=== PATIENT | female | born 1955 | race Caucasian/White ===

== ENCOUNTER 2017-08-15 14:47 | Emergency (ER) | payer OTHER ==
[~2017-08-15] VITALS: Ht 165.1 cm; Wt 75.8 kg
[2017-08-15] MEDS ORDERED: PROZAC 20 MG20 MG PO (14:56)
[2017-08-15] MEDS ORDERED: FISH OIL 1,001000 M2 PO (14:56)
[2017-08-15] MEDS ORDERED: CALCIUM 600 +1 EAC1 PO (14:56)
[2017-08-15] MEDS ORDERED: HYDROCHLOROTH12.5 M1 PO (14:57)
[2017-08-15] MEDS ORDERED: KLOR-CON 1010 MEQ PO (14:57)
[2017-08-15] MEDS ORDERED: ALTACE10 MG PO (14:57)
[2017-08-15] MEDS ORDERED: ONDANSETRON HCL4 M2 PO (14:57)
[2017-08-15] MEDS ORDERED: UNICOMPLEX M TA1 TA1 PO (14:57)
[2017-08-15] MEDS ORDERED: RED YEAST RICE600 M1 PO (14:58)
[2017-08-15 15:06] LABS: HEMATOCRIT 32.9 % (37.0-47.0); MCH 27.7 pg (26.0-34.0); MCHC 33.5 g/dL (28.0-37.0); MCV 82.8 fL (80.0-100.0); NUCLEATED RBCS 0 /100WBC; PLATELET COUNT* 574 thou/uL (150-400); RBC 3.98 mil/uL (4.20-5.00); RDW-CV 13.5 % (10.5-14.5); WBC 14.5 thou/uL (4.0-11.0)
[2017-08-15 15:13] LABS: ANION GAP 10 mmol/L (7-16); BUN 9 mg/dL (7-18); CALCIUM 9.6 mg/dL (8.5-10.1); CHLORIDE 96 mmol/L (98-107); CO2 28 mmol/L (21-32); CREATININE 0.8 mg/dL (0.6-1.3); GLUCOSE 127 mg/dL (70-99); SODIUM 134 mmol/L (136-145)
[2017-08-15 15:20] LABS: ALBUMIN 2.7 g/dL (3.4-5.0); ALKALINE PHOSPHATASE 97 U/L (46-116); LIPASE 105 U/L (73-393); SGOT 15 U/L (15-37); SGPT 23 U/L (30-65); TOTAL BILIRUBIN 0.4 mg/dL (<0.1-1.0); TOTAL PROTEIN 7.8 g/dL (6.4-8.2); TROPONIN-I LEVEL <0.06 ng/mL (<0.06)
[2017-08-15 15:51] LABS: ABSOLUTE BASOPHILS 0.1 thou/uL (0.0-0.2); ABSOLUTE LYMPHOCYTES 2.3 thou/uL (0.8-5.3); ABSOLUTE MONOCYTES 0.6 thou/uL (0.0-1.2); ABSOLUTE NEUTROPHILS 11.5 thou/uL (1.6-8.1)
[2017-08-15 15:53] LABS: PLATELET ESTIMATE INCREASED
[2017-08-15 15:54] LABS: TOXIC GRANULATION Occasional
[2017-08-15 17:23] LABS: URINE BILIRUBIN NEGATIVE (Negative); URINE BLOOD TRACE (Negative); URINE CLARITY CLEAR; URINE COLOR YELLOW; URINE GLUCOSE-RANDOM NEGATIVE (Negative); URINE KETONES 1+ (Negative); URINE LEUKOCYTES-REFLEX NEGATIVE (Negative); URINE NITRITE-REFLEX NEGATIVE (Negative); URINE PROTEIN 1+ (Negative); URINE SPECIFIC GRAVITY <= 1.005 (1.005-1.030); URINE UROBILINOGEN 0.2 E.U./dl (0.2-1.0)
[2017-08-15] MEDS ORDERED: FLAGYL500 MG PO (19:25)
[2017-08-15 20:10] VITALS: BP 121/75
--- NOTE | 2017-08-16 14:30 | EKG ---
[place] [address] ELECTROCARDIOGRAM REPORT Name: TOBIAS COBB Room: 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 M : 1955 Requested By: Venecia Billings Order Number: [id number] MD: Rafi Salcedo Measurements Intervals [place] Rate: 91 P: 60 [place]: 126 QRS: -17 QRSD: 95 T: 61 QT: 370 QTc: 456 Interpretive Statements Sinus rhythm Borderline left axis deviation Low voltage, extremity leads Minimal ST depression, anterolateral leads Baseline wander in lead(s) V2 No previous ECG available for comparison Electronically Signed On 08-16-2017 14:30:12 CDT by Rafi Salcedo [email or web address] <ELECTRONICALLY SIGNED> By: Rafi Salcedo MD, [facility] 08/16/17 1430 1504 1504 Rafi Salcedo MD, [facility] /EPI
== END 2017-08-15 20:16 | disposition home or self-care (01) ==
LOC: M.ERS 14:47
PROVIDERS: Nurse Practitioner Family
DX: R19.7 Diarrhea, unspecified (principal); I10 Essential (primary) hypertension; Z88.8 Allergy status to other drugs, medicaments and biological substances

== ENCOUNTER 2017-09-07 09:15 | Emergency (ER) | payer OTHER ==
[~2017-09-07] VITALS: Ht 165.1 cm; Wt 72.6 kg
[~2017-09-07 09:15] MED LIST: ALTACE10 MG PO; CALCIUM 600 +1 EAC1 PO; FISH OIL 1,001000 M2 PO; FLAGYL500 MG PO; HYDROCHLOROTH12.5 M1 PO; KLOR-CON 1010 MEQ PO; ONDANSETRON HCL4 M2 PO; PROZAC 20 MG20 MG PO; RED YEAST RICE600 M1 PO; UNICOMPLEX M TA1 TA1 PO
[2017-09-07 09:44] LABS: ABSOLUTE EOSINOPHILS 0.1 thou/uL (0.0-0.7); ABSOLUTE LYMPHOCYTES 1.2 thou/uL (0.8-5.3); ABSOLUTE MONOCYTES 0.7 thou/uL (0.0-1.2); ABSOLUTE NEUTROPHILS 5.5 thou/uL (1.6-8.1); BASOPHILS 0.4 %; EOSINOPHILS 1.4 %; HEMATOCRIT 27.3 % (37.0-47.0); HEMOGLOBIN 9.1 gm/dL (12.0-15.0); LYMPHOCYTES 16.1 %; MCH 27.2 pg (26.0-34.0); MCHC 33.1 g/dL (28.0-37.0); MONOCYTES 9.3 %; MPV 5.7 fl. (7.2-11.1); NUCLEATED RBCS 0 /100WBC; PLATELET COUNT* 573 thou/uL (150-400); POLYS 72.8 %; RBC 3.33 mil/uL (4.20-5.00); RDW-CV 14.5 % (10.5-14.5); WBC 7.6 thou/uL (4.0-11.0)
[2017-09-07 09:48] LABS: ANION GAP 8 mmol/L (7-16); BUN 7 mg/dL (7-18); CALCIUM 9.1 mg/dL (8.5-10.1); CHLORIDE 100 mmol/L (98-107); CO2 28 mmol/L (21-32); CREATININE 0.6 mg/dL (0.6-1.3); GLUCOSE 120 mg/dL (70-99); SODIUM 136 mmol/L (136-145)
[2017-09-07 09:54] LABS: ALBUMIN 2.3 g/dL (3.4-5.0); ALKALINE PHOSPHATASE 82 U/L (46-116); LIPASE 173 U/L (73-393); SGOT 16 U/L (15-37); SGPT 21 U/L (30-65); TOTAL BILIRUBIN 0.3 mg/dL (<0.1-1.0); TOTAL PROTEIN 7.3 g/dL (6.4-8.2); TROPONIN-I LEVEL <0.06 ng/mL (<0.06)
[2017-09-07 10:01] LABS: SALICYLATE < 2.8 mg/dL (2.8-20.0)
[2017-09-07 10:02] LABS: ACETAMINOPHEN < 2 ug/mL (10-30); ALCOHOL < 10 mg/dL (<10)
[2017-09-07 10:12] LABS: URINE BILIRUBIN NEGATIVE (Negative); URINE BLOOD NEGATIVE (Negative); URINE CLARITY CLEAR; URINE COLOR YELLOW; URINE GLUCOSE-RANDOM NEGATIVE (Negative); URINE KETONES TRACE (Negative); URINE LEUKOCYTES-REFLEX NEGATIVE (Negative); URINE NITRITE-REFLEX NEGATIVE (Negative); URINE PROTEIN TRACE (Negative); URINE SPECIFIC GRAVITY 1.015 (1.005-1.030); URINE UROBILINOGEN 0.2 E.U./dl (0.2-1.0)
[2017-09-07 10:20] LABS: AMP/METHAMP Negative (Negative); BARBITURATES Negative (Negative); BENZODIAZEPINES Negative (Negative); COCAINE Negative (Negative); METHADONE Negative (Negative); OPIATES Negative (Negative); PCP Negative (Negative); THC Negative (Negative)
[2017-09-07] MEDS ORDERED: PROZAC40 MG PO (10:40)
[2017-09-07 11:53] VITALS: BP 145/83
--- NOTE | 2017-09-07 16:11 | EKG ---
[place] [address] ELECTROCARDIOGRAM REPORT Name: TOBIAS COBB Room: [facility]#: [id number] Admission: 09/07/17 Attend Phys: Discharge: 09/07/17 Date of : 53 Report #: [id number] THIS REPORT FOR: //name// [facility] ED Test Date: 2017-09-07 Test Time: 09:41:37 Pat Name: TOBIAS COBB Department: Room: Gender: F Community Health Planning Director: Shanel MENCHACA : 1955 Requested By: Jay Jay Reed Order Number: [id number] MD: Shane Tripathi Measurements Intervals [place] Rate: 100 P: 62 [place]: 112 QRS: 51 QRSD: 85 T: 75 QT: 332 QTc: 429 Interpretive Statements Sinus tachycardia nonspecific st changes Probable left atrial enlargement Low voltage, extremity leads Compared to ECG 08/15/2017 15:04:09 Sinus rhythm no longer present Electronically Signed On 09-07-2017 16:10:52 CDT by Shane Tripathi [email or web address] <ELECTRONICALLY SIGNED> By: Shane Tripathi MD, [facility] 09/07/17 3100 0941 0941 Shane Tripathi MD, [facility] /EPI
== END 2017-09-07 11:53 | disposition home or self-care (01) ==
LOC: M.ERS 09:15
PROVIDERS: Emergency Medicine Emergency Medical Services
DX: F32.9 Major depressive disorder, single episode, unspecified (principal); R19.7 Diarrhea, unspecified; I10 Essential (primary) hypertension; Z90.89 Acquired absence of other organs; Z88.1 Allergy status to other antibiotic agents; Z88.8 Allergy status to other drugs, medicaments and biological substances

== ENCOUNTER 2017-09-10 09:04 | Inpatient (IN) | payer OTHER ==
[~2017-09-10] VITALS: Ht 165.1 cm; Wt 68.9 kg
--- NOTE | ~2017-09-10 | PROC ---
[address] [address] PROCEDURE REPORT Name: TOBIAS COBB Room: [address] IN M.R.#: [id number] Admission: 09/10/17 Attend Phys: Fermín Andrews MD Discharge: 09/14/17 Date of : 53 Report #: [id number] THIS REPORT FOR: //name// For GI report, Please see the Provation report in Perceptive 7 content. By: 0857Medical Records Staff RYANNE /COLTON
[~2017-09-10 09:04] MED LIST changes: +PROZAC40 MG PO
[2017-09-10 09:12] VITALS: BP 134/76
[2017-09-10] MEDS ORDERED: IRON325 PO (09:15)
[2017-09-10 09:55] LABS: MPV 5.9 fl. (7.2-11.1); PLATELET COUNT* 660 thou/uL (150-400)
[2017-09-10 09:58] LABS: ABSOLUTE LYMPHOCYTES 1.2 thou/uL (0.8-5.3); ABSOLUTE MONOCYTES 0.6 thou/uL (0.0-1.2); ABSOLUTE NEUTROPHILS 5.5 thou/uL (1.6-8.1); BASOPHILS 0.5 %; EOSINOPHILS 0.6 %; HEMATOCRIT 28.8 % (37.0-47.0); HEMOGLOBIN 9.3 gm/dL (12.0-15.0); LYMPHOCYTES 15.9 %; MCH 26.8 pg (26.0-34.0); MCHC 32.5 g/dL (28.0-37.0); MCV 82.6 fL (80.0-100.0); MONOCYTES 7.6 %; NUCLEATED RBCS 0 /100WBC; POLYS 75.4 %; RBC 3.48 mil/uL (4.20-5.00); RDW-CV 14.6 % (10.5-14.5); WBC 7.3 thou/uL (4.0-11.0)
[2017-09-10 10:07] LABS: ANION GAP 7 mmol/L (7-16); BUN 8 mg/dL (7-18); CALCIUM 9.3 mg/dL (8.5-10.1); CHLORIDE 99 mmol/L (98-107); CO2 30 mmol/L (21-32); CREATININE 0.7 mg/dL (0.6-1.3); GLUCOSE 112 mg/dL (70-99); POTASSIUM 3.8 mmol/L (3.5-5.1); SODIUM 136 mmol/L (136-145)
[2017-09-10 10:11] LABS: ALBUMIN 2.4 g/dL (3.4-5.0); ALKALINE PHOSPHATASE 87 U/L (46-116); LIPASE 148 U/L (73-393); SGOT 12 U/L (15-37); SGPT 15 U/L (30-65); TOTAL BILIRUBIN 0.4 mg/dL (<0.1-1.0); TOTAL PROTEIN 7.5 g/dL (6.4-8.2); TROPONIN-I LEVEL <0.06 ng/mL (<0.06)
[2017-09-10 11:27] LABS: URINE BILIRUBIN NEGATIVE (Negative); URINE BLOOD NEGATIVE (Negative); URINE CLARITY CLEAR; URINE COLOR YELLOW; URINE GLUCOSE-RANDOM NEGATIVE (Negative); URINE KETONES 1+ (Negative); URINE LEUKOCYTES-REFLEX NEGATIVE (Negative); URINE NITRITE-REFLEX NEGATIVE (Negative); URINE PROTEIN TRACE (Negative); URINE UROBILINOGEN 0.2 E.U./dl (0.2-1.0)
--- NOTE | 2017-09-10 13:18 | NUR ---
REPORT GIVEN TO ELEAZAR. PT STABLE VSS AT THIS TIME. DR SERRANO IN ROOM, GAVE VERBAL ORDERS TO HOLD IV ABX AND PAIN MEDICATIONS. DR SERRANO OK WITH ORAL VANCOMYCIN, NOT AVAILABLE IN ED. PT IV NS STARTED WO AT THIS TIME. DR SERRANO ALSO ORDERED CDIFF PRECAUTIONS AT THIS TIME. WILL NOTIFY FLOOR RN.
[2017-09-10 13:41] VITALS: BP 127/75
[2017-09-10 13:50] VITALS: BP 137/87
--- NOTE | 2017-09-10 15:14 | EKG ---
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 <ELECTRONICALLY SIGNED> By: Jordan Koo MD, [facility] 09/10/17 1514 6 6 Jordan Koo MD, [facility] /EPI
[2017-09-10 21:15] VITALS: BP 143/79
[2017-09-11 03:55] LABS: ABSOLUTE EOSINOPHILS 0.1 thou/uL (0.0-0.7); ABSOLUTE LYMPHOCYTES 1.3 thou/uL (0.8-5.3); ABSOLUTE MONOCYTES 0.7 thou/uL (0.0-1.2); ABSOLUTE NEUTROPHILS 3.6 thou/uL (1.6-8.1); BASOPHILS 0.7 %; EOSINOPHILS 2.1 %; HEMATOCRIT 24.9 % (37.0-47.0); HEMOGLOBIN 8.2 gm/dL (12.0-15.0); LYMPHOCYTES 22.7 %; MCH 27.1 pg (26.0-34.0); MCHC 32.7 g/dL (28.0-37.0); MCV 82.6 fL (80.0-100.0); MONOCYTES 12.3 %; MPV 5.8 fl. (7.2-11.1); NUCLEATED RBCS 0 /100WBC; POLYS 62.2 %; RBC 3.01 mil/uL (4.20-5.00); RDW-CV 14.8 % (10.5-14.5); WBC 5.8 thou/uL (4.0-11.0)
[2017-09-11 04:08] LABS: PLATELET COUNT* 531 thou/uL (150-400)
[2017-09-11 04:10] LABS: CALCIUM 8.7 mg/dL (8.5-10.1); CREATININE 0.7 mg/dL (0.6-1.3); POTASSIUM 3.6 mmol/L (3.5-5.1); TOTAL BILIRUBIN 0.2 mg/dL (<0.1-1.0); TOTAL PROTEIN 6.2 g/dL (6.4-8.2)
--- NOTE | 2017-09-11 05:28 | NUR ---
PATIENT SLEPT MOST OF THE NIGHT. IV FLUIIDS CONTINUE TO INFUSE AT 100 ML/HR. PATIENT WAS GIVEN TYLENOL TWICE ONCE FOR SLEEP AND ONCE FOR PAIN. ZOFRAN WAS GIVEN TWICE FOR NAUSEA. WILL CONTINUE TO MONITOR.
[2017-09-11 08:45] VITALS: BP 146/82
--- NOTE | 2017-09-11 11:02 | NUR ---
SW met with pt to complete initial assessment, introduce self, and SW role. Pt alert, oriented, pleasant. Pt visiting pt. Pt lives at home with who is supportive and able to assist if needed. Pt has a bed and everything pt would need to live on one level. Pt independent with ADLs and mobility prior to admit. Pt does not anticipate any needs at [place]. Pt does not have any DME or history of services.
[2017-09-11 12:53] LABS: % SATURATION 15 % (20-39); IRON 21 ug/dL (50-175)
--- NOTE | 2017-09-11 13:26 | CON ---
[address] [address] CONSULTATION Name: TOBIAS COBB Room: [address] IN .R.#: [id number] Admission: 09/10/17 Attend Phys: Fermín Andrews MD Discharge: Date of : 53 Report #: [id number] THIS REPORT FOR: //name// CC: Fermín Sparrow DO DICTATED BY: Keri Engel [facility] DATE OF SERVICE: 09/10/2017 Please note at the time of this dictation, the patient was seen and physically examined by myself. REASON FOR CONSULTATION: Diarrhea and abnormal CT. HISTORY OF PRESENT ILLNESS: This is a 61-year-old female who presented to the Emergency Room with persistence of diarrhea explosive at times along with a little bit of nausea. She only had 1 episode of vomiting during her entire 2 months' worth of diarrhea that she has been experiencing. The patient states on 07/09/2017, she went out to dinner and came home and had some diarrhea, again on 07/10/2017, similar episodes and gradually over the month of July, her symptoms have gradually increased with having 6-8 stools a day. She went to the Emergency Room. Prior to going to the Emergency Room first, 08/15/2017, she was seen by her PCP for this diarrhea and felt that it was probably somewhat infectious because she had a similar episode back in 2016 after she ate something, she got diarrhea. She was placed on Cipro for 3 days, which she took and her symptoms went away. After they had stool cultures that they did in the office, she was then placed on Cipro for 3 days b.i.d. and then told to start taking a probiotic. Her symptoms did not improve with this and continued to worsen. She went to the Emergency Room here at [facility] on 08/15/2017, underwent a CT scan that showed some mild bowel wall thickening throughout her entire colon that showed mildly thickened throughout her entire colon. At that time, no stranding was noted. When she came back to the Emergency Room today given her ongoing diarrhea, her CT showed a persistent mild diffuse colonic bowel wall thickening, most prominent in the ascending and descending with some mild pericolonic mesenteric inflammatory changes around the descending colon. The patient states prior to all of these episodes of her diarrhea starting in July, her bowels moved daily like clockwork soft and formed with no evidence of any bright red blood or any melena. With her diarrhea stools, the most she has had a 6-8 a day after being treated with the Cipro really did not help. When she went to the Emergency Room, she took the Flagyl. She did not notice a significant difference in the oral Flagyl, but it did help down to maybe 4 times to 5 times a day, upped from 8. Since the beginning of July, she has lost a total of 25 pounds because she is just not hungry. When she went back to see her PCP the third week of August, he placed her on Xifaxan, which she took for a [facility] [address] [place] [address] CONSULTATION Name: TOBIAS COBB Room: [address] IN [facility]#: [id number] Admission: 09/10/17 Attend Phys: Fermín Andrews MD Discharge: Date of : 53 Report #: [id number] whole week and she states her stools had formed up and she was down to maybe 3 stools a day and they were beginning to form, but they were not completely formed. She states they were more pasty and was seen to the bottom of the stool. She also states during this entire time period that she will develop a low grade fever in the afternoon and evening time as well. When she was here in August, her white count was 14.5. This admission, her white count is normal and she has had no further bowel movements since this morning before she came in. Again, the patient did have a colonoscopy in [address] Carmichael that was completely normal. Her colon back in 2005 showed internal and external hemorrhoids, which was completely normal as well. ALLERGIES: FLAGYL AND MERCURY. MEDICATIONS: From home include potassium, ramipril and ferrous sulfate. PAST MEDICAL HISTORY: Hypertension and depression. PAST SURGICAL HISTORY: Tonsillectomy and adenoidectomy. FAMILY HISTORY: Noncontributory. SOCIAL HISTORY: Denies any alcohol, tobacco or illegal drug use. REVIEW OF SYSTEMS: Twelve-point review of systems is essentially negative except what is mentioned in the HPI. PHYSICAL EXAMINATION: VITAL SIGNS: Reveals temperature 36.7, pulse 102, respirations 15, blood pressure 127/75. HEART: Regular rate and rhythm. LUNGS: Diminished, but clear. ABDOMEN: Soft, positive bowel sounds in all 4 quadrants with no masses or tenderness noted. LABORATORY DATA: Hemoglobin is 9.3. Hemoglobin back 08/15/2017 was 11. Hematocrit is 28.8. White count is 7.3. On 08/15/2017, her white count was 14.3. Platelets 660. Sodium 136, potassium 3.8, chloride 99, CO2 30, BUN is 8, creatinine 0.7, GFR is 85. Glucose is 112. Again, CT of the abdomen and pelvis showed mild bowel wall thickening, more prominent in the ascending and descending colon with some pericolonic fat stranding, more so in the descending. Stool cultures pending. IMPRESSION: 1. Diarrhea. 2. Weight loss greater than 25 pounds. 3[place] [address] CONSULTATION Name: TOBIAS COBB Room: [address] IN M.R.#: [id number] Admission: 09/10/17 Attend Phys: Fermín Andrews MD Discharge: Date of : 53 Report #: [id number] 4. Fatigue. 5. Fever afternoons and evenings, etiology unknown. 6. Depression history. PLAN: 1. Regular diet. 2. Stool cultures. Repeat C. diff, Giardia, E. coli, Vibrio cholerae, adenovirus, norovirus, rotavirus, Giardia and Entamoeba histolytica to fully complete her GI workup for cause. 3. Continue her IV fluids. 4. We will await above results to make sure that they are all negative before we proceed with a colonoscopy with random colon biopsies. We will do EGD and colonoscopy with random colon biopsies and also small bowel biopsies secondary to her anemia as well. 5. We will hold off on antibiotics until cultures have been returned. Thank you for allowing us to participate in this patient's care. Please do not hesitate to call with any questions in regard to this consult. <ELECTRONICALLY SIGNED> By: Elina Madrigal MD 09/11/17 1326 1539 1915Elina Madrigal MD /efraín
--- NOTE | 2017-09-11 16:15 | NUR ---
PATIENT STARTED ON COLON PREP THIS AFTERNOON. IVF INFUSING. STOOL SENT FOR CDIFF SPECIMEN. NPO AFTER MIDNIGT FOR COLONOSCOPY/EGD TOMORROW, CONSENTS SIGNED. PRN ZOFRAN GIVEN X 1 FOR NAUSEA, OTHERWISE TOLERATING PREP AND CLEAR LIQUIDS.
--- NOTE | 2017-09-11 18:36 | NUR ---
ASSUMED CARE OF PATIENT AT 1700. REPORT RECEIVED FROM JIM. PATIENT IS TAKING BOWEL PREP FOR COLONOSCOPY. PATIENT HAS STARTED HAVING BOWEL MOVEMENTS. PATIENT IS UP AD JOSHUA TO BATHROOM. PATIENT HAS HAD NAUSEA WITH NO VOMITING, ZOFRAN GIVEN. PATIENT DENIES ANY NEEDS AT THIS TIME. CALL LIGHT WITHIN REACH. WILL CONTINUE TO MONITOR.
[2017-09-11 22:30] VITALS: BP 141/80
[2017-09-12 04:11] LABS: ABSOLUTE EOSINOPHILS 0.1 thou/uL (0.0-0.7); ABSOLUTE LYMPHOCYTES 1.3 thou/uL (0.8-5.3); ABSOLUTE MONOCYTES 0.9 thou/uL (0.0-1.2); ABSOLUTE NEUTROPHILS 5.2 thou/uL (1.6-8.1); BASOPHILS 0.4 %; EOSINOPHILS 1.2 %; HEMATOCRIT 24.4 % (37.0-47.0); HEMOGLOBIN 8.1 gm/dL (12.0-15.0); LYMPHOCYTES 17.3 %; MCH 27.3 pg (26.0-34.0); MCHC 33.2 g/dL (28.0-37.0); MCV 82.3 fL (80.0-100.0); MONOCYTES 11.7 %; MPV 5.9 fl. (7.2-11.1); NUCLEATED RBCS 0 /100WBC; PLATELET COUNT* 559 thou/uL (150-400); POLYS 69.4 %; RBC 2.97 mil/uL (4.20-5.00); RDW-CV 14.6 % (10.5-14.5); WBC 7.5 thou/uL (4.0-11.0)
[2017-09-12 04:33] LABS: ALBUMIN 2.1 g/dL (3.4-5.0); CALCIUM 8.7 mg/dL (8.5-10.1); CREATININE 0.6 mg/dL (0.6-1.3); POTASSIUM 3.2 mmol/L (3.5-5.1); TOTAL BILIRUBIN 0.3 mg/dL (<0.1-1.0); TOTAL PROTEIN 6.3 g/dL (6.4-8.2)
--- NOTE | 2017-09-12 05:11 | NUR ---
PT SLEPT AT INTERVALS DURING THE NIGHT, BOWEL PREP COMPLETE, STOOLS RELATIVELY CLEAR THIS AM, PRN TYLENOL AND NAUSEA MEDICATIONS GIVEN PER REQUEST, NPO SINCE MIDNIGHT, UP SBA TO THE BATHROOM, PT REFUSED IV FLUIDS, PT ANXIOUS ABOUT PROCEDURE AND PT REASSURED, CALL LIGHT IN REACH, WILL CONTINUE TO MONITOR
[2017-09-12 08:15] VITALS: BP 146/84
[2017-09-12 08:20] VITALS: BP 146/84
[2017-09-12 12:30] VITALS: BP 157/89
[2017-09-12 16:36] VITALS: BP 138/77
--- NOTE | 2017-09-12 17:55 | NUR ---
PATIENT HAS BEEN A/O X 4 THIS SHIFT. GIVEN TYLENOL X 1 TODAY WITH GOOD RELIEF. HAD COLONOSCOPY AND EGD COMPLETED WITHOUT INCIDENT. PATIENT UNABLE TO TOLERATE IV FLAGYL AND DR BUTLER NOTIFIED OF THE ABOVE. NEW SALINE LOCK STARTED AND IV FLUIDS INFUSING ORDERED. PATIENT TOLERATING LOW RESIDUE DIET. UP AD JOSHUA IN ROOM. PATIENT'S AT BEDSIDE INTERMITTENTLY. PATIENT UPDATED ON ALL NEW ORDERS AND PLAN OF CARE. HOURLY ROUNDING COMPLETED. CALL LIGHT WITHIN REACH. WILL COTNINUE WITH PLAN OF CARE.
[2017-09-12 20:30] VITALS: BP 145/77
[2017-09-13] VITALS: BP 137/84
[2017-09-13 04:00] VITALS: BP 139/74
[2017-09-13 04:08] LABS: HEMATOCRIT 27.7 % (37.0-47.0); HEMOGLOBIN 9.1 gm/dL (12.0-15.0); MCH 26.9 pg (26.0-34.0); MCHC 32.7 g/dL (28.0-37.0); MCV 82.1 fL (80.0-100.0); MPV 5.8 fl. (7.2-11.1); RBC 3.38 mil/uL (4.20-5.00); RDW-CV 15.1 % (10.5-14.5); WBC 8.6 thou/uL (4.0-11.0)
[2017-09-13 04:10] LABS: CALCIUM 8.8 mg/dL (8.5-10.1); CREATININE 0.7 mg/dL (0.6-1.3); POTASSIUM 3.1 mmol/L (3.5-5.1)
[2017-09-13 08:10] VITALS: BP 135/89
--- NOTE | 2017-09-13 08:20 | NUR ---
Alert and oriented x 4. She is up to bathroom with stand by assist. IV in L wrist is doing well. She did have a shower last evening. Vitals stable. She had cipro and after it was almost infused she felt shaky,anxious and couldn't sleep,she had a metallic taste. She wants cipro dc'd. She didn't sleep well.
[2017-09-13 16:00] VITALS: BP 114/83
--- NOTE | 2017-09-13 18:22 | NUR ---
PATIENT HAS BEEN A/O X 4 THIS SHIFT. MEDICATED FOR HEADACHE X 2 TODAY WITH GOOD RELIEF. ZOFRAN GIVEN X 2 PER REQUEST. IV FLUIDS INFUSING. UP AD JOSHUA IN ROOM. REFUSED ANTIBIOTICS THIS SHIFT. POTASSIUM GIVEN WITH MUCH ENCOURAGEMENT. AT BEDSIDE. HOURLY ROUNDING COMPLETED. CALL LIGHT WITHIN REACH. WILL CONTINUE WITH PLAN OF CARE.
[2017-09-13 20:00] VITALS: BP 119/61
[2017-09-14 04:21] LABS: HEMATOCRIT 25.2 % (37.0-47.0); HEMOGLOBIN 8.3 gm/dL (12.0-15.0); MCH 27.1 pg (26.0-34.0); MCHC 32.8 g/dL (28.0-37.0); MCV 82.8 fL (80.0-100.0); RBC 3.05 mil/uL (4.20-5.00); RDW-CV 15.3 % (10.5-14.5); WBC 8.7 thou/uL (4.0-11.0)
[2017-09-14 04:41] LABS: ALBUMIN 2.2 g/dL (3.4-5.0); CALCIUM 8.3 mg/dL (8.5-10.1); CREATININE 0.7 mg/dL (0.6-1.3); MAGNESIUM 1.6 mg/dL (1.8-2.4); POTASSIUM 4.2 mmol/L (3.5-5.1); TOTAL BILIRUBIN 0.3 mg/dL (<0.1-1.0)
--- NOTE | 2017-09-14 07:25 | NUR ---
Alert and oriented x 4. Up with stand by assist to the bathroom. Vitals are stable but temp was slightly elevated 99.6. She did take tylenol x 2 and zofran x 2. She had some swelling to feet and ankles so we turned off her fluids. She is drinking well. She continues to refuse cipro and lovenox. She did sleep well.
[2017-09-14 08:00] VITALS: BP 136/78
[2017-09-14 11:30] VITALS: BP 136/78
--- NOTE | 2017-09-14 13:58 | NUR ---
DISCHARGE NOTE - PT DC'ED HOME. IV REMOVED WITHOUT DIFFICULTY. NO QUESTIONS REGARDING INSTRUCTIONS. ONE RX GIVEN. DISCHARGED WITH SPOUSE. BELONGINGS SENT WITH PT.
--- NOTE | 2017-09-15 16:08 | PATH ---
[address] [address] PATHOLOGY RPT PROCEDURE Name: CHRISTINA WEST Room: [address] IN .R.#: [id number] Admission: 09/10/17 Date of : 53 Discharge: 09/14/17 Report #: [id number] Path Case #: [id number] [facility] Accession Number: [id number] . 01 Material submitted: . PART A: DUODENAL BIOPSY PART B: RANDOM COLON BIOPSIES . 01 Clinical history: . A: For diarrhea and abnormal imaging B: For diffuse ulceration and inflammation . 02 Diagnosis: A. Duodenal biopsy: - Normal small intestinal/duodenal mucosa. . B. Random colon biopsies: - Focal severe active colitis with suggestion of ulceration and of chronic colitis, negative for granulomas, viral inclusions and dysplasia. See comment. LBQ/09/15/2017 . 02 Comment: The random colon biopsies (B) shows several benign colonic mucosal fragments which are near normal as well as several showing severe active inflammation including crypt abscesses and abundant neutrophils in the lamina propria. A small fragment of inflamed vascular stroma with abundance of plasma cells suggests granulation tissue and or chronic inflammation which is also noted in another mucosal fragment in which there is crypt disarray and some basal plasmacytosis. Ischemic features are not apparent and there is no inflammatory pseudomembrane seen. These findings could be seen with use of nonsteroidal anti-inflammatory agents although Crohn's disease should be considered in the clinical differential. (REENA:db; 09/15/2017) . 02 Electronically signed: . Brady Keith MD, Pathologist NPI- [id number] . 01 Gross description: . A. The specimen is received in formalin, labeled "Christina West, duodenal biopsy" and consists of multiple fragments of whyte soft tissue measuring 1.1 x 0.7 x 0.2 cm in aggregate. They are entirely submitted in A1. . B. The specimen is received in formalin, labeled "Christina West, random colon biopsies" and consists of multiple [place] [address] PATHOLOGY RPT PROCEDURE Name: CHRISTINA WEST Room: [address] DIS IN M.R.#: [id number] Admission: 09/10/17 Date of : 53 Discharge: 09/14/17 Report #: [id number] Path Case #: [id number] tissue measuring 1.3 x 0.5 x 0.2 cm in aggregate. They are entirely submitted in B1. (SDY; 09/14/2017) SYU/SYU . 02 Pathologist provided ICD-10: K52.9, R19.7, R93.3 . 02 CPT . 432264, 738951 Performed at: [facility] [address], [place], [place] [id number] MD Phil Fitzpatrick MD Phone: [phone] Performed at: [address] [place], [place] [id number] MD Brady Keith MD Phone: [phone]
--- NOTE | 2017-09-22 16:59 | CON ---
[address] [address] CONSULTATION Name: TOBIAS COBB Room: [address] IN M.R.#: [id number] Admission: 09/10/17 Attend Phys: Fermín Andrews MD Discharge: 09/14/17 Date of : 53 Report #: [id number] THIS REPORT FOR: //name// CC: Fermín Andrews Geovanni isabellasapna DATE OF SERVICE: 09/10/2017 ADDENDUM I have personally seen and examined the patient and reviewed labs and imaging. The patient with history of weight loss of 25 pounds, anemia and diarrhea. She also has a CT suggestive of thickening of the colon. The patient has been receiving antibiotics as outpatient with not much improvement in symptoms. Stool studies and C. diff assay were obtained and pending results. We will await these results and if they were negative, we will consider endoscopic evaluation. The patient is agreeable with plan. <ELECTRONICALLY SIGNED> By: Elina Madrigal MD 09/22/17 1659 1325 [id number] Madrigal MD /nt
== END 2017-09-14 13:25 | disposition home or self-care (01) | DRG 392 ==
LOC: M.ERS 09:04 → M.3W 12:15 → M.TBA-ER 12:15 → M.3W 14:13 → M.ORTHSURG 09-11 16:41
PROVIDERS: Emergency Medicine Emergency Medical Services; Family Medicine; Nurse Practitioner Adult Health; ADMIT Internal Medicine
DX: A09 Infectious gastroenteritis and colitis, unspecified (principal); E44.0 Moderate protein-calorie malnutrition; K63.3 Ulcer of intestine; D50.9 Iron deficiency anemia, unspecified; K44.9 Diaphragmatic hernia without obstruction or gangrene; K64.8 Other hemorrhoids; E87.6 Hypokalemia; I10 Essential (primary) hypertension; F32.9 Major depressive disorder, single episode, unspecified; Z68.25 Body mass index [BMI] 25.0-25.9, adult; Z79.899 Other long term (current) drug therapy; Z88.8 Allergy status to other drugs, medicaments and biological substances

== ENCOUNTER → 2018-07-26 | Outpatient (CLI) | payer OTHER ==
[~2018-07-26] MED LIST changes: +IRON325 PO
[2018-07-26 13:16] LABS: ABSOLUTE EOSINOPHILS 0.1 thou/uL (0.0-0.7); ABSOLUTE LYMPHOCYTES 1.4 thou/uL (0.8-5.3); ABSOLUTE MONOCYTES 0.3 thou/uL (0.0-1.2); ABSOLUTE NEUTROPHILS 2.3 thou/uL (1.6-8.1); BASOPHILS 0.5 %; EOSINOPHILS 1.7 %; HEMATOCRIT 37.4 % (37.0-47.0); HEMOGLOBIN 12.7 gm/dL (12.0-15.0); LYMPHOCYTES 34.4 %; MCH 28.4 pg (26.0-34.0); MCHC 33.8 g/dL (28.0-37.0); MCV 84.1 fL (80.0-100.0); MONOCYTES 6.9 %; MPV 7.3 fl. (7.2-11.1); NUCLEATED RBCS 0 /100WBC; PLATELET COUNT* 233 thou/uL (150-400); POLYS 56.5 %; RBC 4.45 mil/uL (4.20-5.00); RDW-CV 14.6 % (10.5-14.5)
[2018-07-26 13:34] LABS: ALBUMIN 3.7 g/dL (3.4-5.0); CALCIUM 8.8 mg/dL (8.5-10.1); CREATININE 0.8 mg/dL (0.6-1.3); TOTAL BILIRUBIN 0.4 mg/dL (<0.1-1.0); TOTAL PROTEIN 7.1 g/dL (6.4-8.2)
[2018-07-26 15:01] LABS: ESR (SEDRATE) 9 mm/hr (0-30)
== END ==
LOC: M.LAB 12:48
PROVIDERS: Nurse Practitioner Adult Health
DX: K51.90 Ulcerative colitis, unspecified, without complications (principal)

== ENCOUNTER 2020-03-15 10:05 | Emergency (ER) | payer MEDICARE, OTHER ==
[~2020-03-15] VITALS: Ht 165.1 cm; Wt 86.3 kg
[2020-03-15 10:36] LABS: URINE BILIRUBIN NEGATIVE (Negative); URINE BLOOD NEGATIVE (Negative); URINE CLARITY CLEAR; URINE COLOR YELLOW; URINE GLUCOSE-RANDOM NEGATIVE (Negative); URINE KETONES NEGATIVE (Negative); URINE LEUKOCYTES-REFLEX NEGATIVE (Negative); URINE NITRITE-REFLEX NEGATIVE (Negative); URINE PROTEIN NEGATIVE (Negative); URINE UROBILINOGEN 0.2 E.U./dl (0.2-1.0)
[2020-03-15 10:42] LABS: ABSOLUTE LYMPHOCYTES 1.3 thou/uL (0.8-5.3); ABSOLUTE MONOCYTES 0.8 thou/uL (0.0-1.2); ABSOLUTE NEUTROPHILS 5.7 thou/uL (1.6-8.1); BASOPHILS 0.4 %; EOSINOPHILS 0.4 %; HEMATOCRIT 38.2 % (37.0-47.0); LYMPHOCYTES 16.4 %; MCH 29.2 pg (26.0-34.0); MCV 85.9 fL (80.0-100.0); MONOCYTES 9.8 %; MPV 7.4 fl. (7.2-11.1); NUCLEATED RBCS 0 /100WBC; PLATELET COUNT* 223 thou/uL (150-400); RBC 4.44 mil/uL (4.20-5.00); RDW-CV 13.6 % (10.5-14.5); WBC 7.9 thou/uL (4.0-11.0)
[2020-03-15 10:52] LABS: CALCIUM 8.5 mg/dL (8.5-10.1); POTASSIUM 3.3 mmol/L (3.5-5.1)
[2020-03-15 10:58] LABS: PROTIME 10.4 Seconds (9.20-11.50)
[2020-03-15 11:06] LABS: ALBUMIN 3.3 g/dL (3.4-5.0); TOTAL BILIRUBIN 0.6 mg/dL (<0.1-1.0); TOTAL PROTEIN 6.3 g/dL (6.4-8.2)
--- NOTE | 2020-03-15 11:32 | NUR ---
RIGHT BASIILC VESSEL ACCESSED FOR 5 UKRAINIAN TRIPLE LUMEN PICC. LINE PRE-TRIMMED TO 36CM AND ADVANCED TO THE ZERO JOSEY WITH NO RESISTANCE MET. UPPER ARM CIRCUMFERENC ABOVE INSERTION SITE= 13". SHERLOCK MAGNET AND 3CG CONFIRMATION OF TIP TERMINATION AT THE CAVOATRIAL JUNCTION APPRECIATED. GUIDEWIRE REMOVED, LINE FLUSHED AND INSERTION SITE DRESSED. REPORT GIVEN TO AUDREY LUCERO.
[2020-03-15] MEDS ORDERED: MELATONIN10 M3 PO (11:50)
[2020-03-15] MEDS ORDERED: SEROQUEL 25 MG25 M1 PO (11:50)
[2020-03-15 13:27] VITALS: BP 95/64
--- NOTE | 2020-03-15 16:16 | EKG ---
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 <ELECTRONICALLY SIGNED> By: Shane Tripathi MD, FAC 03/15/20 1615 1022 1022 Shane Tripathi MD, [facility] /EPI
== END 2020-03-15 13:31 | disposition short-term general hospital (02) ==
LOC: M.ERS 10:05
PROVIDERS: Family Medicine
DX: J96.90 Respiratory failure, unspecified, unspecified whether with hypoxia or hypercapnia (principal); Z20.828 Contact with and (suspected) exposure to other viral communicable diseases; R79.1 Abnormal coagulation profile; R41.82 Altered mental status, unspecified; I10 Essential (primary) hypertension; Z79.899 Other long term (current) drug therapy; Z88.8 Allergy status to other drugs, medicaments and biological substances

== ENCOUNTER → 2020-05-24 | Outpatient (CLI) | payer OTHER ==
[~2020-05-24] MED LIST changes: +MELATONIN10 M3 PO; +SEROQUEL 25 MG25 M1 PO
== END ==
LOC: M.CT 07:56
PROVIDERS: ATTEND Internal Medicine Cardiovascular Disease
DX: Z13.6 Encounter for screening for cardiovascular disorders (principal); I25.10 Atherosclerotic heart disease of native coronary artery without angina pectoris

== ENCOUNTER → 2020-11-01 | Outpatient (CLI) | payer MEDICARE, OTHER | LOC: M.LAB 05:56 | PROVIDERS: ATTEND Anesthesiology | DX: E87.6 Hypokalemia (principal) ==

== ENCOUNTER → 2021-01-24 | Outpatient (CLI) | payer MEDICARE, OTHER | LOC: M.RAD 07:40 | DX: Z12.31 Encounter for screening mammogram for malignant neoplasm of breast (principal) ==

== ENCOUNTER → 2021-02-05 | Outpatient (CLI) | payer MEDICARE, OTHER | LOC: M.RAD 01-25 12:46 | DX: R92.2 Inconclusive mammogram (principal); N63.20 Unspecified lump in the left breast, unspecified quadrant ==

== ENCOUNTER 2021-03-11 12:42 | Emergency (ER) | payer MEDICARE, OTHER ==
[~2021-03-11] VITALS: Ht 162.6 cm; Wt 76.2 kg
[2021-03-11] MEDS ORDERED: ADIPEX-P37.5 MG PO (13:18)
[2021-03-11] MEDS ORDERED: LOSARTAN-HCTZ1 EAC3 PO (13:18)
[2021-03-11] MEDS ORDERED: ARIPIPRAZOLE2 MG PO (13:18)
[2021-03-11] MEDS ORDERED: VITAMIN B6100 MG/2.5 PO (13:19)
[2021-03-11] MEDS ORDERED: METFORMIN HCL500 M3 PO (13:19)
[2021-03-11] MEDS ORDERED: VITAMIN D250 MCG PO (13:19)
[2021-03-11 15:49] VITALS: BP 145/63
== END 2021-03-11 15:49 | disposition home or self-care (01) ==
LOC: M.ERS 12:42
DX: S01.01XA Laceration without foreign body of scalp, initial encounter (principal); I10 Essential (primary) hypertension; F32.9 Major depressive disorder, single episode, unspecified; Z79.899 Other long term (current) drug therapy; Z88.8 Allergy status to other drugs, medicaments and biological substances; Z91.048 Other nonmedicinal substance allergy status; W00.1XXA Fall from stairs and steps due to ice and snow, initial encounter; Y93.89 Activity, other specified; Y92.89 Other specified places as the place of occurrence of the external cause; Y99.8 Other external cause status